=== PATIENT | female | born 2000 | race Two or more races ===

== ENCOUNTER → 2021-01-31 06:51 | Outpatient (CLI) | payer OTHER | END | disposition home or self-care (01) | LOC: LAB 06:51 | PROVIDERS: ATTEND Emergency Medicine Pediatric Emergency Medicine | DX: Z03.818 Encounter for observation for suspected exposure to other biological agents ruled out (principal) ==

== ENCOUNTER 2021-02-09 06:20 | Outpatient (CLI) | payer OTHER | END 2021-02-09 06:22 | disposition home or self-care (01) | LOC: LAB 06:20 | PROVIDERS: ATTEND Internal Medicine Endocrinology, Diabetes & Metabolism | DX: Z20.828 Contact with and (suspected) exposure to other viral communicable diseases (principal) ==